=== PATIENT | female | born 1955 | race Caucasian/White ===

== ENCOUNTER 2017-12-01 10:58 | Emergency (ER) | END 2017-12-01 14:24 | disposition home or self-care (01) ==

== ENCOUNTER 2018-08-08 11:37 | Emergency (ER) | payer MEDICARE, OTHER ==
[~2018-08-08] VITALS: Ht 167.6 cm; Wt 65.4 kg
[~2018-08-08 11:37] MED LIST: IBUP-1542 PO
[2018-08-08 11:42] VITALS: Ht 167.6 cm; Wt 65.4 kg
--- NOTE | 2018-08-08 12:20 | ERD ---
ER Documentation Chief Complaint Chief Complaint SOB hx of Asthma HPI The patient is a 62-year-old female, presenting to the ER because of acute dyspnea, cough for the last 2 days, had similar symptoms previously, denies fever, chills, lost her voice today, denies chest pain, abdominal pain, vomiting, dysuria, diarrhea, complains of lower back pain. She does not smoke nor drink Past medical history: Asthma, anxiety, depression, dyslipidemia, hypertension, chronic right hip pain Past surgical history: Cholecystectomy, hysterectomy ROS All systems reviewed and are negative except as per history of present illness. Medications Home Meds Active Scripts Salmeterol Xinaf-Fluticasone* (Advair HFA*) 45/212 Aerosol Inhaler, 2 INH IH BID, #1 INHALER Prov:BRE MAGUIRE MD 08/08/18 Albuterol Sulfate* (Proair HFA*) 8.5 Gm Hfa.aer.ad, 2 PUFF INH Q4, #1 INHALER Prov:BRE MAGUIRE MD 08/08/18 Ibuprofen* (Motrin*) 600 Mg Tab, 600 MG PO Q6, #30 TAB Prov:MANNY RENDON PA-C 12/01/17 Reported Medications Pravastatin Sodium* (Pravastatin Sodium*) 20 Mg Tablet, 20 MG PO HS, TAB 08/08/18 Meclizine Hcl* (Meclizine Hcl*) 25 Mg Tablet, 25 MG PO DAILY, TAB 08/08/18 Lorazepam* (Lorazepam*) 0.5 Mg Tablet, 0.5 MG PO DAILY, TAB 08/08/18 Loratadine* (Loratadine*) 10 Mg Tablet, 10 MG PO DAILY, #30 TAB 08/08/18 Diclofenac Sodium* (Voltaren* Gel) 1% -100 Gm Gel, 2 GM TOP BID PRN for PAIN LEVEL 1-5, #1 TUB 08/08/18 Dexlansoprazole (Dexilant) 60 Mg Amado., 60 MG PO DAILY, #30 CAP 08/08/18 Albuterol Sulfate* (Ventolin HFA*) 18 Gm Hfa.aer.ad, 2 PUFF INHALATION Q6H, #1 INHALER 08/08/18 Allergies Allergies: Coded Allergies: Penicillins (Verified Allergy, Unknown, 08/08/18) doxycycline (Verified Allergy, Unknown, 08/08/18) levofloxacin (Verified Allergy, Unknown, 08/08/18) PMhx/Soc History of Surgery: Yes (CHOLECYSTECTOMY) Anesthesia Reaction: No Hx Neurological Disorder: No Hx Respiratory Disorders: Yes (ASTHMA) Hx Cardiac Disorders: Yes (HTN, HIGH CHOLESTEROL) Hx Psychiatric Problems: Yes (ANXIETY, DEPRESSION) Hx Miscellaneous Medical Probl: No Hx Alcohol Use: No Hx Substance Use: No Hx Tobacco Use: No Smoking Status: Never smoker Physical Exam Vitals Vital Signs Date Temp Pulse Resp B/P (MAP) Pulse Ox O2 O2 Flow FiO2 Time Delivery Rate 08/08/18 98.9 78 15 116/68 98 Room Air 18:04 (84) 08/08/18 98.9 68 14 123/73 98 Room Air 15:32 (90) 08/08/18 98.9 75 17 116/69 97 Room Air 14:08 (85) 08/08/18 86 18 96 21 13:11 08/08/18 99.2 79 20 187/80 100 11:42 (115) Physical Exam Const: No acute distress. Head: Atraumatic. Eyes: Normal Conjunctiva. ENT: Normal External Ears, Nose and Mouth. Neck: Full range of motion. No meningismus. Resp: minimal expiratory wheezes Cardio: Regular rate and rhythm. Abd: Soft, non distended, normal bowel sounds, non tender. Skin: No petechiae or rashes. Back: No midline or flank tenderness. Ext: No cyanosis, or edema. Neur: Awake and alert. No focal deficit Psych: Normal Mood and Affect. Result Diagram: 08/08/18 1305 08/08/18 1305 Results 24 hrs Laboratory Tests Test 08/08/18 13:05 White Blood Count 10.2 10^3/ul Red Blood Count 4.90 10^6/ul Hemoglobin 14.4 g/dl Hematocrit 44.8 % Mean Corpuscular Volume 91.4 fl Mean Corpuscular Hemoglobin 29.4 pg Mean Corpuscular Hemoglobin Concent 32.1 g/dl Red Cell Distribution Width 12.7 % Platelet Count 220 10^3/UL Mean Platelet Volume 9.7 fl Immature Granulocytes % 0.300 % Neutrophils % 68.2 % Lymphocytes % 22.5 % Monocytes % 5.8 % Eosinophils % 2.3 % Basophils % 0.9 % Nucleated Red Blood Cells % 0.0 /100WBC Immature Granulocytes # 0.030 10^3/ul Neutrophils # 7.0 10^3/ul Lymphocytes # 2.3 10^3/ul Monocytes # 0.6 10^3/ul Eosinophils # 0.2 10^3/ul Basophils # 0.1 10^3/ul Nucleated Red Blood Cells # 0.0 10^3/ul Prothrombin Time 11.8 Sec Prothrombin Time Ratio 0.9 INR International Normalized Ratio 0.86 Activated Partial Thromboplast Time 32.3 Sec D-Dimer 553.38 ng/ml D-Dimer Comment Sodium Level 140 mmol/L Potassium Level 3.9 mmol/L Chloride Level 96 mmol/L Carbon Dioxide Level 31 mmol/L Anion Gap 13 Blood Urea Nitrogen 13 mg/dl Creatinine 0.71 mg/dl Est Glomerular Filtrat Rate mL/min > 60 mL/min Glucose Level 91 mg/dl Calcium Level 10.3 mg/dl Troponin I < 0.012 ng/ml B-Type Natriuretic Peptide 211 PG/ML Current Medications Medications Dose Sig/Jeremy Start Time Status Last (Trade) Ordered Route PRN Stop Time Admin Dose Reason Admin Ipratropium 0.5 mg ONCE STAT 08/08/18 DC 08/08/18 [place] [facility] 12:32 12:59 (Atrovent 08/08/18 12:40 0.02% (Neb)) 1.25 mg ONCE ONCE 08/08/18 DC 08/08/18 Levalbuterol HHN 13:00 12:59 (Xopenex 08/08/18 13:01 Neb) Sodium 100 ml @ ud STK-MED 08/08/18 DC 08/08/18 Chloride ONCE .ROUTE 15:07 15:15 08/08/18 15:08 Iohexol 100 ml @ ud STK-MED 08/08/18 DC 08/08/18 ONCE .ROUTE 15:07 15:15 08/08/18 15:08 Procedures/[place] [id number] Radiology Main Line: [phone] DIAGNOSTIC IMAGING REPORT Patient: ANN-MARIE BELL : 1955 Age: 62 Sex: F MR #: [id number] DOS: 08/08/18 1232 Ordering MD: BRE MAGUIRE MD Location: E/R Room/Bed: PROCEDURE: XR Chest. CLINICAL INDICATION: Shortness of breath TECHNIQUE: Single AP view of the chest was obtained COMPARISON: 06/14/2014 FINDINGS: The heart and mediastinum are within normal limits. The pulmonary vasculature are unremarkable. The aorta demonstrates atherosclerotic calcifications. There is no lung consolidation, pleural effusion or pneumothorax. Degenerative changes are seen within the thoracic spine and shoulders. There is no acute osseous abnormality. IMPRESSION: No acute disease. RPTAT: AA .Mikie Tena MD, Date Time Electronically viewed and signed by .Mikie Tena MD, on 08/08/2018 13:37 .J/ CC: BRE MAGUIRE MD [id number] [place] [address] Radiology Main Line: [phone] DIAGNOSTIC IMAGING REPORT Patient: ANN-MARIE BELL : 1955 Age: 62 Sex: F [id number] DOS: 08/08/18 0000 Ordering MD: BRE MAGUIRE MD Location: E/R Room/Bed: PROCEDURE: CT angiogram Chest. CLINICAL INDICATION: 62-year with shortness of breath. History of asthma. TECHNIQUE: CT angiogram of the chest was performed after the administration of 100 ml Omnipaque-350 intravenous contrast. Coronal and sagittal reformations were obtained. 3-D images were performed. DICOM images are available. CTDI: 6.32 mGy and DLP: 251.28 mGy.cm. One or more of the following dose reduction techniques were utilized: Automated exposure control, adjustment of the mA and/or kV according to patient size, use of iterative reconstruction technique. COMPARISON: Radiograph 08/08/2018 FINDINGS: No pulmonary emboli. Normal caliber main pulmonary artery. Normal caliber aorta without aneurysmal dilatation or dissection. Main splenic artery aneurysm with peripheral calcifications measuring 1.6 x 1.4 x 1.3 cm. Normal heart size. No pericardial effusion. Coronary calcifications. No focal airspace opacity, pleural effusion or pneumothorax. No mediastinal, hilar or axillary adenopathy. The osseous structures are normal. Visualized portions of the upper abdomen demonstrates scattered low density lesions in the liver and 1.6 cm splenic artery aneurysm. Small hiatal hernia. IMPRESSION: No pulmonary embolus. No pulmonary consolidation. Incidentally noted main splenic artery aneurysm measuring 1.6 cm. These are usually treated with endovascular coil embolization if over 2.0 cm. Recommend follow-up with MR angiogram abdomen in 6 months. RPTAT:AAJJ Physician Jorge Date Time Electronically viewed and signed by Physician Jorge on 08/08/2018 15:51 MH/ CC: BRE MAGUIRE MD [id number] MEDICAL MAKING DECISION: The patient is a 62-year-old female, presenting with acute asthma exacerbation, acute viral syndrome, coincidental finding of a splenic artery aneurysm. She was treated with Atrovent 0.5 mg and Xopenex 125 mg for wheezing with good response, is stable for outpatient follow-up The differential diagnoses considered include but are not limited to asthma, COPD, pneumonia, pulmonary embolus, pleural effusion, congestive heart failure. Departure Diagnosis: Primary Impression: Asthma Additional Impressions: Viral syndrome Splenic artery aneurysm Condition: Good Comments She was discharge with albuterol and Advair MDI I discussed the findings with the patient. I advised the patient to follow-up with the primary physician in about 2-3 days for evaluation and referral to vascular surgeon for the splenic artery aneurysm, sooner if needed and return if any concern. Disclaimer: Inadvertent spelling and grammatical errors are likely due to EHR/dictation software use and do not reflect on the overall quality of patient care. Also, please note that the electronic time recorded on this note does not necessarily reflect the actual time of the patient encounter. BRE MAGUIRE MD Aug 08, 2018 12:20
[2018-08-08] MEDS ORDERED: IPRATROPIUM (NEB) 0.5 MG/2.5 ML AMP INH STA (12:32)
[2018-08-08] MEDS ORDERED: ALBU18HF INHALATION (12:48)
[2018-08-08] MEDS ORDERED: LORA10TA3 PO (12:48)
[2018-08-08] MEDS ORDERED: DEXL60CA2 PO (12:48)
[2018-08-08] MEDS ORDERED: MECL-77 PO (12:48)
[2018-08-08] MEDS ORDERED: LORA0.5T PO (12:48)
[2018-08-08] MEDS ORDERED: PRAV20TA63 PO (12:48)
[2018-08-08] MEDS ORDERED: DICL100G37 TOP (12:48)
[2018-08-08] MEDS ORDERED: LEVALBUTEROL (NEB) 1.25 MG/0.5 ML AMP HHN ONE (13:00)
[2018-08-08] MEDS ORDERED: SOD CHLORIDE 0.9% 100 ML ONE (15:07)
[2018-08-08] MEDS ORDERED: IOHEXOL 100 ML ONE (15:07)
[2018-08-08] MEDS ORDERED: FLUT12HF IH (17:40)
[2018-08-08] MEDS ORDERED: ALBU8.5H8 INH (17:40)
[2018-08-08 18:04] VITALS: BP 116/68; PULSE 78; RESP 15
== END 2018-08-08 18:04 | disposition home or self-care (01) ==
LOC: E/R 11:37
DX: J45.901 Unspecified asthma with (acute) exacerbation (principal); I10 Essential (primary) hypertension; B34.9 Viral infection, unspecified; I72.8 Aneurysm of other specified arteries
CPT/HCPCS: 36415; 71045; 71275; 80048; 83880; 84484; 85025; 85378; 85610; 85730; 93005; 94664; 99285; Q9967